=== PATIENT | male | born 1975 | race Caucasian/White ===

== ENCOUNTER 2020-08-30 09:33 | Emergency (ER) | payer BC ==
[2020-08-30] MEDS ORDERED: Sodium Chloride 0.9% 10 ML Syringe FLUSH PRN (09:42)
[2020-08-30 10:20] LABS: CHLORIDE,CL 102 mmol/L (98-107); SODIUM,NA 139 mmol/L (136-145)
[2020-08-30] MEDS ORDERED: Iopamidol 612 MG/ML 100 ML Bottle IVPUSH STA (11:03)
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
== END 2020-08-30 13:05 | disposition home or self-care (01) ==
LOC: LL.ED 09:33
DX: K57.32 Diverticulitis of large intestine without perforation or abscess without bleeding (principal); Z87.891 Personal history of nicotine dependence
CPT/HCPCS: 36415; 74177; 80053; 81003; 83605; 83735; 84100; 85025; 86140; 99284-25; Q9967

== ENCOUNTER 2022-04-11 16:47 | Emergency (ER) | payer BC ==
[2022-04-11] MEDS: Lactated Ringers 1,000 ML IV SCH (17:24)
[2022-04-11] MEDS: Sodium Chloride 0.9% 10 ML Syringe FLUSH PRN (17:26)
[2022-04-11] MEDS: Lisinopril 10 MG Tab PO ONE (17:26)
[2022-04-11 18:07] LABS: ANION GAP 10.7 meq/L (7-15)
[2022-04-11] MEDS: Iopamidol 612 MG/ML 100 ML Bottle ONE (19:16)
[2022-04-11] MEDS ORDERED: Iopamidol 612 MG/ML 100 ML Bottle ONE (19:30)
[2022-04-11] MEDS ORDERED: Diatrizoate Meglumine/Diatrizoate Sodium 37% 30 ML Bottle ONE (19:30)
[2022-04-11] MEDS: metroNIDAZOLE 500 MG Tab PO SCH (20:34)
[2022-04-11] MEDS: Ciprofloxacin 500 MG Tab PO ONE (20:34)
== END 2022-04-11 20:42 | disposition home or self-care (01) ==
LOC: LL.ED 16:47
DX: K57.92 Diverticulitis of intestine, part unspecified, without perforation or abscess without bleeding (principal); I16.0 Hypertensive urgency; I10 Essential (primary) hypertension; Z88.0 Allergy status to penicillin; Z79.899 Other long term (current) drug therapy; Z87.891 Personal history of nicotine dependence
CPT/HCPCS: 36415; 74177; 80053; 83605; 83690; 83735; 85025; 96360; 96361; 99284-25; A9270-GY; J3490; J7120; Q9963; Q9967

== ENCOUNTER 2023-01-16 12:25 | Emergency (ER) | payer OTHER ==
[2023-01-16] MEDS: Lidocaine 1% 5 ML VIAL INJECT ONE (13:09)
[2023-01-16] MEDS: Bacitracin Oint 1 GM U/D Packet TOP ONE (13:09)
== END 2023-01-16 13:57 | disposition home or self-care (01) ==
LOC: LL.ED 12:25 → UNDOADMIN 13:44 → LL.MS 13:44 → LL.ED 13:57
DX: S61.512A Laceration without foreign body of left wrist, initial encounter (principal); I10 Essential (primary) hypertension; Z88.0 Allergy status to penicillin; W26.8XXA Contact with other sharp object(s), not elsewhere classified, initial encounter
CPT/HCPCS: 12001; 99282; 99283; J3490

== ENCOUNTER 2023-11-30 09:38 | Day surgery (SDC) | payer BC ==
[~2023-11-30 09:38] MED LIST: Midazolam 1 MG/ML 2 ML SDV ONE; Propofol 200 MG/20 ML SDV ONE
[2023-11-30] MEDS ORDERED: Sodium Chloride 0.9% 10 ML Syringe FLUSH PRN (10:00)
[2023-11-30] MEDS: Lactated Ringers 1,000 ML IV SCH (10:15)
[2023-11-30 11:50] VITALS: BP 133/85
[2023-11-30 11:53] VITALS: PULSE 74
== END 2023-11-30 12:20 | disposition home or self-care (01) ==
LOC: LL.SDS 09:38
PROVIDERS: ATTEND Surgery
DX: Z12.11 Encounter for screening for malignant neoplasm of colon (principal); K64.8 Other hemorrhoids; Q43.8 Other specified congenital malformations of intestine; Z79.899 Other long term (current) drug therapy; Z87.891 Personal history of nicotine dependence
CPT/HCPCS: J2250; J2704; J7120